=== PATIENT | male | born 1960 ===

== ENCOUNTER → 2020-03-22 | Outpatient (REF) ==
--- NOTE | 2020-03-22 09:16 | Diagnostic Imaging Report ---
INDICATION: Positive TB skin test PA and lateral chest Right IJ Port-A-Cath tip projects over the right atrium. Heart size and pulmonary vascularity are normal. Lungs are clear. There are no effusions or pneumothoraces. IMPRESSION: No radiographic evidence for tuberculosis. Dictated by: Dictated on workstation # [id number]
== END ==
LOC: OCC 08:49
PROVIDERS: ATTEND Nurse Practitioner Family
DX: R76.11 Nonspecific reaction to tuberculin skin test without active tuberculosis (principal)
CPT/HCPCS: 71046